=== PATIENT | female | born 1940 | race Caucasian/White ===

== ENCOUNTER → 2019-02-21 | Outpatient (CLI) | payer MEDICARE, MEDICAID ==
[~2019-02-21] MED LIST: ALLO100T PO; ATOR1TAB21 PO; CELE20TA PO; CIPR-249 PO; DOCU100C16 PO; FURO20TA2 PO; MIRA3350 PO; MOBI4TAB PO; NEUR100C PO; NOVOINJ3 SC; OXYC-517 PO; PRED20TA PO; SPIR-10 PO; TOPR50TA PO; TRES1INJ SC; [UNRECOGNIZED DRUG - CODE] PO
--- NOTE | 2019-02-21 17:29 | REP ---
PET/CT: History: Initial staging non-Hodgkin's lymphoma. Intra-abdominal node/mass. Comparisons: No comparison abdominal imaging is available. TECHNIQUE: 60 minutes following the intravenous injection of a 9.85 mCi dose of F-18 FDG, three-dimensional PET scintigraphy is acquired from the skull base to the proximal thighs. Triplanar noncontrast CT scanning is acquired through the same anatomic range for attenuation correction, and image registration with scan parameters optimized to minimize radiation exposure to the patient. PET scintigraphy and CT datasets were fused and displayed on a workstation with multiplanar and projection display capability. PET/CT Findings: There is fairly bulky small bowel mesenteric lymphadenopathy. The largest tatum component in the small bowel mesentery measures 7.6 cm in greatest diameter. On the anterior margin of this there is a small metallic clip. This tatum mass in the small bowel mesentery is hypermetabolic. Maximum standard uptake value is 14.46. There is no other abnormal hypermetabolic uptake in the abdomen or pelvis. No abnormal hypermetabolic uptake is seen in the thoracic cavity. Head and neck soft tissues are unremarkable. Impression: There is fairly bulky confluent adenopathy in the small bowel mesentery in the central abdomen which is hypermetabolic. No other abnormal hypermetabolic uptake is seen. Electronically Signed by Will Velazquez MD 02/21/2019 08:41 P
== END ==
LOC: MERGE 11:31 → M PLARAD 11:31
PROVIDERS: ATTEND Internal Medicine Medical Oncology
DX: R19.00 Intra-abdominal and pelvic swelling, mass and lump, unspecified site (principal); C85.12 Unspecified B-cell lymphoma, intrathoracic lymph nodes
CPT/HCPCS: 78815; A9552

== ENCOUNTER → 2019-03-22 | Outpatient (CLI) | payer MEDICARE, MEDICAID ==
[~2019-03-22] MED LIST changes: +BUPIVACAINE HCL 0.5% 10 ML VIAL As Ordered ONE; +LIDOCAINE 1% MDV 20ML VIAL As Ordered ONE; +LIDOCAINE 2% MDV 20 ML VIAL As Ordered ONE; +MIDAZOLAM INJ 2 MG/2 ML VIAL (J2250) As Ordered ONE; +OLAN10TA12 PO; +ONDA8TAB7 PO; +OXYC1TAB15 PO; +PROC10TA4 PO; +ceFAZolin 1GM INJ (J0690 PER 500MG) As Ordered ONE; +diphenhydrAMINE INJ 50MG/ML VIAL (J1200) As Ordered ONE; +fentaNYL 100 MCG/2 ML INJECTION (J3010) As Ordered ONE
--- NOTE | 2019-03-22 08:48 | IPNPDOC ---
Subjective Date Seen The patient was seen on 03/22/19. Subjective Chief Complaint/HPI lymphoma. needs port for chemo Objective Physical Examination Other physical findings Diagnosis: lymphoma. needs port for chemo ASA III Malampatti II DANITZA: yes problems with sedation before: no NPO; yes Heart normal rate breathing normally at rest plan port placement under moderate sedation. Assessment /Plan Plan/VTE VTE Prophylaxis Ordered?: No Plan port VS, I&O, 24H, Fishbone Vital Signs/I&O Vital Signs Date Time Temp Pulse Resp B/P (MAP) Pulse Ox O2 Delivery O2 Flow Rate FiO2 03/22/19 08:02 99.0 78 18 94 BRITNEY PEREYAR MD Mar 22, 2019 08:48
--- NOTE | 2019-03-22 10:46 | ROOPDOC ---
[facility] Report Of Operation Report of Operation DATE OF PROCEDURE: 03/22/19 PREPROCEDURE DIAGNOSES: lymphoma POSTPROCEDURE DIAGNOSES: lymphoma PROCEDURE: port SURGEON: joan ANESTHESIA: mod sed ESTIMATED BLOOD LOSS: Approximately [5] mL. COMPLICATIONS: [none]. REMARKS: right IJ port placed. tip RA. port ready for use BRITNEY PEREYRA MD Mar 22, 2019 10:46
[2019-03-22 11:48] VITALS: BP 132/74
--- NOTE | 2019-03-22 13:11 | REP ---
Ultrasound and fluoroscopic guided port placementUltrasound of the neckClinical Information: Lymphoma. Port for chemoPhysician[s]: Dr. Smallsrocedure: The patient was advised of the benefits, risks, and alternatives of the procedure and informed consent was obtained.A time out was performed with verification of the patient's name, MRN, site of procedure, and type of procedure to be performed. The patient was positioned in the supine position on the angiographic table. The site was prepped and draped in the usual sterile fashion.Moderate sedation was performed by the physician including the presence of an independent trained observer that assisted in monitoring the patient's level of consciousness and physiological status. Following the administration of Versed and Fentanyl, the physician spent 45 minutes of continuous [id number] time with the patient.Ultrasound of the neck reveals a patent and compressible right internal jugular vein.A lead systems architect radiograph reveals no significant abnormality. The neck and anterior chest wall were anesthetized with lidocaine. The right internal jugular vein was accessed using a microintroducer needle via lateral approach. A 0.018 cope wire was advanced into the superior vena cava, the needle was removed and a microintroducer sheath was placed. An Amplatz wire was then passed into the inferior vena cava. Incisions at the internal jugular access site and anterior chest wall were made using a scalpel. An incision was made over the anterior chest wall. A small pocket was created using a combination of blunt and sharp dissection. A tunneler was then used to pass the catheter from the pocket to the neck puncture site. An 8 Samoan Clearvue view Powerport was then positioned in the pocket. The catheter was then measured and cut. The microintroducer sheath was exchanged for a peel-away sheath. The catheter was passed through the peel-away sheath into the internal jugular vein, and the peel-away sheath was removed. The port was then accessed with a Friedman needle. The port flushes and aspirates easily. The puncture site in the neck was closed. The chest wall incision was then closed with 2-0 Vicryl sutures and 4-0 Monocryl. A sterile dressing was then applied.The patient tolerated the procedure well and was returned to the PRU in stable condition.EBL: lt; 5 mL.Complications: Complications.Conclusion:1. Successful placement of an 8 Samoan Clearvue Powerport power injectable port via the right internal jugular vein. The port is ready for immediate use. 2. Patient to follow up in IR clinic in 2 weeks Thank you for this referral Electronically Signed by Chely Samson MD 03/22/2019 01:09 P
== END ==
LOC: M IRPRO 07:51
PROVIDERS: ATTEND Radiology Diagnostic Radiology
DX: C83.30 Diffuse large B-cell lymphoma, unspecified site (principal); A49.8 Other bacterial infections of unspecified site; E10.9 Type 1 diabetes mellitus without complications; G47.33 Obstructive sleep apnea (adult) (pediatric)
CPT/HCPCS: 36563; 76937; C1769; C1788; C1894; J0690; J1200; J2250; J3010

== ENCOUNTER → 2019-04-03 | Outpatient (POV) | payer MEDICARE, MEDICAID ==
[~2019-04-03] VITALS: Ht 147.3 cm; Wt 111.4 kg
[~2019-04-03] MED LIST changes: -BUPIVACAINE HCL 0.5% 10 ML VIAL As Ordered ONE; -LIDOCAINE 1% MDV 20ML VIAL As Ordered ONE; -LIDOCAINE 2% MDV 20 ML VIAL As Ordered ONE; -MIDAZOLAM INJ 2 MG/2 ML VIAL (J2250) As Ordered ONE; -ceFAZolin 1GM INJ (J0690 PER 500MG) As Ordered ONE; -diphenhydrAMINE INJ 50MG/ML VIAL (J1200) As Ordered ONE; -fentaNYL 100 MCG/2 ML INJECTION (J3010) As Ordered ONE
[2019-04-03 09:15] VITALS: BP 130/63
--- NOTE | 2019-04-03 14:02 | IPNPDOC ---
Text Note Date of Service The patient was seen on 04/03/19. 2 weeks status post right IJ port placement. Patient doing well. No fevers or chills. Port working well. On examination: Patient appears comfortable at rest. Port site looks clean with appropriate healing. Dissolvable sutures in the process of absorbing. No pus, no redness or tenderness. Impression: Doing well 2 weeks status post port placement. Advised on on going care for that area until full healing has occurred. Thank you for this referral Malvin MONTOYA, I+O VSMalvin, I+O Vital Signs Date Time Temp Pulse Resp B/P (MAP) Pulse Ox O2 Delivery O2 Flow Rate FiO2 04/03/19 09:15 96.6 71 18 130/63 (85) 92 BRITNEY PEREYRA MD Apr 03, 2019 14:02
== END ==
LOC: M IRPOV 09:11
PROVIDERS: ATTEND Radiology Diagnostic Radiology
DX: Z48.812 Encounter for surgical aftercare following surgery on the circulatory system (principal)

== ENCOUNTER → 2019-04-17 | Outpatient (CLI) | payer MEDICARE, MEDICAID ==
[~2019-04-17] MED LIST changes: +GERI8.6T PO
--- NOTE | 2019-04-17 18:53 | REP ---
CT NECK WITHOUT CONTRAST: HISTORY: Neck lump. The naso-, nena-, and hypopharynx, larynx and subglottic trachea are normal in appearance. The salivary and thyroid glands are normal in size and density. Small lymph nodes less than 1 cm in size are present in the internal jugular chains, posterior triangles and submandibular areas. Atherosclerotic calcification is present at the carotid bifurcations. Degenerative change is present in the cervical spine. The lung apices are clear. Mucosal thickening is present in the left sphenoid sinus. A catheter is present in the right subclavian vein. IMPRESSION:There is no neck mass or adenopathy. Electronically Signed by Lux Bermudez MD 04/18/2019 08:18 A
== END ==
LOC: M RAD 15:47
PROVIDERS: ATTEND Internal Medicine
DX: R13.10 Dysphagia, unspecified (principal)

== ENCOUNTER → 2019-05-11 | Outpatient (CLI) | payer MEDICARE, MEDICAID ==
[~2019-05-11] MED LIST changes: +AMOX875T2 PO; +MELA5TAB11 PO
--- NOTE | 2019-05-11 16:18 | REP ---
Clinical: History of lymphoma for restaging. Technique: Axial noncontrast images from the thoracic inlet to the upper abdomen with coronal and sagittal re-formations. Comparison: 01/25/2019. Findings: Bilateral lung mccartney demonstrate chronic mild bronchiectasis, interstitial changes and chronic linear fibrosis/scarring involving the lower lung zones without acute consolidation or significant atelectasis. No pleural effusion. No pneumothorax. A 3 mm noncalcified nodule in the right upper lobe (image 26, 39) appear minimally decreased in size from prior examination. Calcified granuloma in the left lower lobe remains stable. No further nodule or mass lesion. No obvious significant adenopathy by noncontrast evaluation although a few scattered calcified hilar lymph nodes are identified and consistent with prior granulomatous disease. Atherosclerotic changes to the thoracic aorta and coronary arteries noted without aortic aneurysm. No cardiomegaly. No pericardial effusion. Musculoskeletal structures demonstrate age-related degenerative changes without focal osseous abnormality. Limited upper abdomen demonstrates normal bilateral adrenal glands and evidence for prior cholecystectomy. Impression: 1. Two small noncalcified nodules in the right upper lobe measuring up to 3 mm are decreased from prior examination. 2. No new acute mediastinal or pleuroparenchymal process appreciated. 3. Chronic stable changes. Electronically Signed by Madhu Harper MD 05/11/2019 04:11 P
--- NOTE | 2019-05-11 16:23 | REP ---
Clinical: Lymphoma for restaging. Technique: Axial noncontrast images from the lung bases to the pubic symphysis with coronal and sagittal re-formations. Comparison: 01/23/2019. Findings: Bulky soft tissue mass lesions in the central mesentery consistent with adenopathy are again identified but decreased from prior examination. Specifically, the largest lesion measures 5.6 x 3.5 x 3.9 cm and previously measured 7.8 x 6.0 x 5.0 cm. No new mass lesions or further adenopathy is appreciated. No retroperitoneal or pelvic adenopathy noted. No ascites. Liver, spleen/splenules, pancreas, bilateral adrenal glands and atrophic appearing kidneys remain essentially stable and within normal limits. Evidence of prior cholecystectomy again noted. The enteric system is without obstruction or acute inflammatory process. Scattered colonic diverticula noted without acute diverticulitis. Pelvis demonstrates normal bladder and age-appropriate uterus/adnexa. Musculoskeletal structures demonstrate degenerative changes without focal abnormality noted. Impression: 1. Bulky mass lesions in the central mesentery consistent with adenopathy appeared slightly decreased in size compared to prior examination. No new adenopathy or mass lesions noted. 2. Diverticulosis without acute diverticulitis. Electronically Signed by Madhu Harper MD 05/11/2019 04:15 P
== END ==
LOC: M RAD 13:09
PROVIDERS: ATTEND Internal Medicine Medical Oncology
DX: C83.30 Diffuse large B-cell lymphoma, unspecified site (principal); R91.8 Other nonspecific abnormal finding of lung field; K57.90 Diverticulosis of intestine, part unspecified, without perforation or abscess without bleeding

== ENCOUNTER → 2019-08-14 | Outpatient (CLI) | payer MEDICARE, MEDICAID ==
[~2019-08-14] MED LIST changes: +GASTROGRAFIN SOLUTION 30ML (Q9963) As Ordered ONE; +ISOVUE-370 76% 100ML VIAL (Q9967) As Ordered ONE; +LIDO2.5C15 TOP
--- NOTE | 2019-08-14 11:48 | REP ---
Clinical: Diffuse large B-cell lymphoma. Technique: Axial contrast enhanced images from the lung bases to the pubic symphysis with oral (per protocol) and 100 ml Isovue 370 intravenous contrast material. Delayed images of the abdomen and. Comparison: 04/24/2019. Findings: Central mesenteric mass/adenopathy has decreased in size with the largest lesion now measuring 4.5 x 2.7 cm (previously measuring 5.6 x 3.5 cm) and the adjacent smaller lymph nodes are also decreased in size. No further intra-abdominal adenopathy. No retroperitoneal or inguinal adenopathy noted. Liver, spleen, pancreas, bilateral adrenal glands and symmetric atrophic kidneys appear relatively normal / stable. Evidence for prior cholecystectomy. The enteric system is without obstruction or acute inflammatory process. Few sigmoid diverticula noted without acute diverticulitis. Pelvis demonstrates collapsed bladder and stable uterus/adnexa. No ascites. No free air. Lung bases demonstrate chronic bronchiectasis, minimal scarring, and calcified granuloma. Visualized heart and pericardium normal. Impression: 1. Central mesenteric adenopathy has decreased when compared to prior examination. No new lesions are appreciated. No ascites. Electronically Signed by Madhu Harper MD 08/14/2019 11:39 A
--- NOTE | 2019-08-14 11:51 | REP ---
Clinical: Diffuse large B-cell lymphoma. Technique: Axial contrast enhanced images from the thoracic inlet to the upper abdomen with coronal and sagittal re-formations using 100 ml Isovue 370 intravenous contrast material. Comparison: 05/11/2019. Findings: The bilateral lung mccartney demonstrate chronic lingular and bibasilar scarring along with mild chronic bronchiectasis and 9 mm calcified granuloma in the left lower lobe. 3 mm noncalcified nodules in the right upper lobe (image 22, 35) are stable compared to 05/11/2019 and 01/25/2019 examinations. PET-CT on 02/21/2019 demonstrate no hypermetabolic activity. No consolidation. No effusion. No pneumothorax. No axillary, hilar, or mediastinal adenopathy. Atherosclerotic changes to the thoracic aorta and coronary arteries again noted without aortic aneurysm or cardiomegaly. No pericardial effusion. Osseous structures are intact. [id number] identified with tip in the right atrium. Impression: 1. No acute mediastinal or pleuroparenchymal process appreciated. 2. Chronic stable changes as noted above. Electronically Signed by Madhu Harper MD 08/14/2019 11:44 A
--- NOTE | 2019-08-14 12:17 | REP ---
CT neck: 08/14/2019. Indication: Diffuse large B-cell lymphoma. Comparison: 04/17/2019. Technique: Axial images of the neck soft tissues were obtained following the administration of 100 ml IV Isovue 370. Sagittal and coronal reconstructions provided. Findings: No abnormal solid soft tissue masses, abnormal fluid collections or lymphadenopathy are present within the neck soft tissues. Note is made of a retropharyngeal course of the carotid arteries bilaterally. The submandibular, parotid and thyroid glands are unremarkable. The airway is patent. No significant ocular, intraorbital or intracranial abnormalities are detected. Paranasal sinus mucosal disease is present within the left sphenoid sinus including inspissated mucous. Impression: No cervical lymphadenopathy. Left sphenoid sinus disease. Electronically Signed by Neville Dawson DO 08/14/2019 12:08 P
== END ==
LOC: M RAD 09:08
PROVIDERS: ATTEND Internal Medicine Medical Oncology
DX: C83.30 Diffuse large B-cell lymphoma, unspecified site (principal); J32.3 Chronic sphenoidal sinusitis
CPT/HCPCS: 70491; 71260; 74177; Q9963; Q9967

== ENCOUNTER → 2019-11-27 | Outpatient (CLI) | payer MEDICARE, MEDICAID ==
[~2019-11-27] MED LIST changes: +LEVO500T3 PO; +ONDA8TAB10 PO; -ONDA8TAB7 PO
--- NOTE | 2019-11-27 15:56 | REP ---
REASON FOR EXAM: History of large B cell lymphoma. COMPARISON: Multiple, the latest 08/14/2019. CONTRAST: 100 mL Isovue 370. The mediastinum and pulmonary viv are unchanged. No mass or adenopathy has developed. There are no pleural or pericardial effusions. The imaged osseous structures are stable and intact. Evaluation of the lung mccartney shows two nodules in the right upper lobe, one anteriorly and seen on the prior exam measuring 4 mm today measuring 5 mm, the other, inferomedial to that on the prior exam measuring 4 mm and today measuring 5 mm. There are a few scattered incidental calcified granulomas status quo. IMPRESSION: Two nodules in the right lung upper lobe as described above. Although they seemingly have only increased 1 mm in size each that 1 mm increment may represent a significant increase in size since the prior exam was 3 months ago. This finding should be correlated clinically with appropriate followup. Other findings as described above. Electronically Signed by Roge Ba DO 11/27/2019 04:34 P
--- NOTE | 2019-11-27 16:00 | REP ---
REASON: Followup lymphoma. COMPARISON: Multiple, the latest 08/14/2019. CONTRAST: 100 mL Isovue 370. Surgical clips are again seen in the gallbladder fossa from previous cholecystectomy. The liver, spleen, pancreas, adrenal glands, and kidneys are unchanged. Note is again made of bilateral renal cortical thinning status quo. The abdominal aorta and paraaortic regions are unchanged. No adenopathy has developed. No free fluid or free air is present. In the small bowel mesentery centrally note is again made of a mass the size of which has remained stable measuring approximately 4.6 x 2.8 cm. Two smaller nodules are again seen adjacent to this mass and those two are unchanged. CT PELVIS: The bowel loops and their mesenteries are within normal limits. There is no evidence of a pelvic mass or adenopathy. There is no free fluid or free air. Bone window technique throughout the exam shows no significant change in the appearance of the osseous structures. IMPRESSION: Stable CT examination of the abdomen and pelvis as described above. Electronically Signed by Roge Ba DO 11/27/2019 04:34 P
== END ==
LOC: M RAD 12:47
PROVIDERS: ATTEND Internal Medicine Medical Oncology
DX: C83.32 Diffuse large B-cell lymphoma, intrathoracic lymph nodes (principal); R91.8 Other nonspecific abnormal finding of lung field
CPT/HCPCS: 71260; 74177; J1642; Q9963; Q9967

== ENCOUNTER → 2020-12-29 | Outpatient (CLI) | payer MEDICARE, MEDICAID ==
[~2020-12-29] MED LIST changes: +CITA40TA4 PO; +FURO40TA2 PO; -ISOVUE-370 76% 100ML VIAL (Q9967) As Ordered ONE; +ISOVUE-370 76% 100ML VIAL As Ordered ONE; +[UNRECOGNIZED DRUG - CODE] PO; -[UNRECOGNIZED DRUG - CODE] PO
--- NOTE | 2020-12-29 15:20 | REP ---
INDICATION: LYMPHOMA. COMPARISON: CT neck with contrast 08/14/2019. TECHNIQUE: Axial CT images with multiplanar reformations. FINDINGS: Oropharynx, nasopharynx, hypopharynx and larynx appear unremarkable. No significant lymphadenopathy identified. There is [id number] multilevel degenerative disease of the cervical spine without evidence of a high-grade canal stenosis. Atherosclerotic changes are seen at the right carotid bifurcation without definite evidence of a high-grade canal stenosis. Similarly on the left atherosclerotic calcification seen at the carotid bifurcation without evidence of a high-grade stenosis. IVC filter seen in position. Internal carotid arteries have a retropharyngeal deviation. As noted previously, the left sphenoid sinus appears chronically opacified. IMPRESSION: No lymphadenopathy seen. Chronic left sphenoid sinus disease. <Electronically signed by Jon Vanessa > 12/29/20 [id number]
--- NOTE | 2020-12-29 15:37 | REP ---
INDICATION: LYMPHOMA COMPARISON: 11/27/2019 TECHNIQUE: Axial contrast enhanced images from the thoracic inlet to the upper abdomen using 100 ml Isovue 370 intravenous contrast material with coronal and sagittal reformations followed by CT of the abdomen and pelvis.. This CT examination was performed using the following dose reduction techniques: Automated exposure control, adjustment of mA and/or kv according to the patient's size, and use of iterative reconstruction technique. FINDINGS: Relatively mild mediastinal and bilateral hilar adenopathy is appreciated including few lymph nodes measuring up to approximately 16 mm diameter which is increased as compared with prior examination. Few bilateral noncalcified pulmonary nodules are also appreciated which may be slightly increased from prior examination. As example, a new nodules identified in the left perihilar region measuring 9 mm (series 304; image 53). Lung mccartney also demonstrate chronic interstitial changes, chronic mild bronchiectasis and calcified granuloma. No acute consolidation, effusion, or pneumothorax. Further evaluation of the mediastinum demonstrates stable atherosclerotic changes to the thoracic aorta and coronary arteries without aortic aneurysm, dissection, or cardiomegaly. No pericardial effusion. Surrounding musculoskeletal structures are intact. [id number] identified with tip in the right atrium. IMPRESSION: 1. Mild, but increased mediastinal and bilateral hilar adenopathy with lymph nodes measuring up to approximately 16 mm. 2. Few noncalcified nodules throughout the bilateral lung mccartney similar to prior examination although new nodule in the left perihilar region and minimally increased size to few nodules suggested. <Electronically signed by Madhu Harper > 12/29/20 [id number]
--- NOTE | 2020-12-29 15:42 | REP ---
INDICATION: LYMPHOMA. COMPARISON: 11/27/2019 TECHNIQUE: Axial contrast-enhanced images from the lung bases to the pubic symphysis using oral and 100 cc Isovue 370 intravenous contrast material. Coronal and sagittal reformations obtained along with delayed images of the abdomen. This CT examination was performed using the following dose reduction techniques: Automated exposure control, adjustment of mA and/or kv according to the patient's size, and the use of iterative reconstruction technique. FINDINGS: Liver, pancreas, and bilateral adrenal glands are normal. Spleen demonstrates parenchymal calcifications suggesting prior granulomatous disease and or post therapeutic changes. Evidence for prior cholecystectomy. Kidneys demonstrate symmetric age-related atrophic changes. The enteric system is without obstruction or acute inflammatory process. Colonic and sigmoid diverticula noted without acute diverticulitis. Pelvis demonstrates normal bladder and age-appropriate uterus/adnexa. No ascites. No free air. No intraperitoneal or retroperitoneal adenopathy. Abdominal aorta and vasculature appear normal. Musculoskeletal structures are intact and without acute osseous abnormality. IMPRESSION: No acute abdominopelvic pathology appreciated. No ascites, focal inflammatory stranding or adenopathy. Chronic nonacute findings. <Electronically signed by Madhu Harper > 12/29/20 [id number]
== END ==
LOC: M RAD 13:05
PROVIDERS: ATTEND Specialist
DX: C85.90 Non-Hodgkin lymphoma, unspecified, unspecified site (principal); J32.3 Chronic sphenoidal sinusitis; R91.8 Other nonspecific abnormal finding of lung field; K57.30 Diverticulosis of large intestine without perforation or abscess without bleeding
CPT/HCPCS: 70491; 71260; 74177; Q9963; Q9967

== ENCOUNTER → 2021-04-21 | Outpatient (REF) | payer MEDICARE, MEDICAID ==
[~2021-04-21] MED LIST changes: -GASTROGRAFIN SOLUTION 30ML (Q9963) As Ordered ONE; -ISOVUE-370 76% 100ML VIAL As Ordered ONE; +LIDO1CRE42 TOP; -LIDO2.5C15 TOP; -OXYC1TAB15 PO; +OXYC7.5T3 PO; +STIO1AER IN
== END ==
LOC: M LAB REF 17:04
PROVIDERS: ATTEND Internal Medicine Nephrology
DX: N39.0 Urinary tract infection, site not specified (principal)

== ENCOUNTER → 2021-08-17 | Outpatient (CLI) | payer MEDICARE, MEDICAID ==
[~2021-08-17] MED LIST changes: +LEVO250T12
--- NOTE | 2021-08-17 13:26 | REP ---
INDICATION: DLBCL. COMPARISON: None. TECHNIQUE: CT chest performed without the use of intravenous contrast. Sagittal and coronal reconstruction images are performed. FINDINGS: Lungs: A 3 mm ill-defined nodular density in the left upper lobe on image 36 has decreased since the prior study. A 3 mm nodular density in the right upper lobe on image 25 has decreased since the prior study. There is a 6 x 3 mm oval nodular density in the right upper lobe posteriorly on image 28 which is new. A 3 mm nodular density in the right upper lobe on image 30 has decreased in size. A 5 mm nodular density in the right upper lobe on image 38 has decreased in size, previously 7 mm. A 3 mm nodular density in the medial right posterior costophrenic sulcus has decreased since the prior exam. Diffuse fibrotic changes and bilateral lower lobe bronchiectasis are not significantly changed. Calcified granuloma is seen in the left lower lobe. Mediastinum: Multiple mildly enlarged mediastinal lymph nodes have mildly increased in size. The largest is in the precarinal region measuring 2.0 x 1.5 cm. Krupa: Multiple bilateral hilar lymph nodes have mildly increased in size. Precise measurements cannot be obtained due to the lack of IV contrast. Axilla: No gross adenopathy. Pleura: No effusion. Heart: There is mild cardiomegaly. Thoracic aorta: No aneurysm. Upper abdominal structures: There has been a prior cholecystectomy. Visualized osseous structures: There are degenerative changes of the spine without compression deformity. Right central venous catheter is seen with the tip in the right atrium. IMPRESSION: Previously noted parenchymal nodular densities have mildly decreased in size overall, there is 1 new oval nodular density in the right upper lobe measuring 6 x 3 mm. Multiple mildly enlarged mediastinal and hilar lymph nodes have mildly increased in size since the prior exam as discussed in detail above. <Electronically signed by Star Villanueva > 08/17/21 [id number]
--- NOTE | 2021-08-17 13:38 | REPVR ---
PROCEDURE INFORMATION: Exam: CT Neck Without Contrast Exam date and time: 08/17/2021 12:56 PM Age: 80 years old Clinical indication: Condition or disease; Other: Dlbcl TECHNIQUE: Imaging protocol: Computed tomography images of the neck without contrast. Radiation optimization: All CT scans at this facility use at least one of these dose optimization techniques: automated exposure control; mA and/or kV adjustment per patient size (includes targeted exams where dose is matched to clinical indication); or iterative reconstruction. COMPARISON: PT PET/CT SKULL BASE TO MID THIGH - OUTSIDE PRIOR 03/10/2021 9:40 AM FINDINGS: Paranasal sinuses: There is moderate left sphenoid sinus mucosal thickening with dense material, suggestive of inspissation. Nasopharynx: Unremarkable. Oropharynx: Unremarkable. No significant tonsillar enlargement. Hypopharynx: Unremarkable. Larynx: Unremarkable. Normal epiglottis. Retropharyngeal space: Unremarkable. Submandibular/Parotid glands: Normal. Glands are normal in size. Thyroid: Normal. No enlarged or calcified nodules. Lymph nodes: There is prevascular and paratracheal lymphadenopathy. Trachea: Visualized trachea is unremarkable. Lungs: Unremarkable as visualized. Bones/joints: There is multilevel degenerative disc disease and spondylosis. No acute fracture. Soft tissues: Unremarkable. No significant soft tissue swelling. IMPRESSION: Mediastinal lymphadenopathy, incompletely imaged. Electronically signed by: Marielle Walter On 08/17/2021 13:38:20 PM
== END ==
LOC: M RAD 12:46
PROVIDERS: ATTEND Specialist
DX: C83.30 Diffuse large B-cell lymphoma, unspecified site (principal); R91.8 Other nonspecific abnormal finding of lung field; R59.9 Enlarged lymph nodes, unspecified

== ENCOUNTER → 2021-11-18 | Outpatient (CLI) | payer MEDICARE, MEDICAID ==
[~2021-11-18] MED LIST changes: -CITA40TA4 PO; +CITA40TA7 PO; -LEVO250T12; +LEVO250T3; -LEVO500T3 PO; +LEVO500T4 PO; +ONDA-84 PO; -ONDA8TAB10 PO; +PRESCAP PO; -PROC10TA4 PO; +PROC10TA5 PO
== END ==
LOC: M RAD 09:46
PROVIDERS: ATTEND Specialist
DX: C83.30 Diffuse large B-cell lymphoma, unspecified site (principal); I25.10 Atherosclerotic heart disease of native coronary artery without angina pectoris; K57.90 Diverticulosis of intestine, part unspecified, without perforation or abscess without bleeding; R91.8 Other nonspecific abnormal finding of lung field

== ENCOUNTER → 2022-07-12 | Outpatient (CLI) | payer MEDICARE, MEDICAID ==
[~2022-07-12] MED LIST changes: +Aspirin PO; +BRIL90TA; +LEVO1TAB38; +LEVO1TAB39 PO; -LEVO250T3; -LEVO500T4 PO
== END ==
LOC: M RAD 09:16
PROVIDERS: ATTEND Nurse Practitioner
DX: C85.90 Non-Hodgkin lymphoma, unspecified, unspecified site (principal); Z90.49 Acquired absence of other specified parts of digestive tract; I70.0 Atherosclerosis of aorta; N26.1 Atrophy of kidney (terminal); K57.30 Diverticulosis of large intestine without perforation or abscess without bleeding; M51.36 Other intervertebral disc degeneration, lumbar region; R91.1 Solitary pulmonary nodule; J84.10 Pulmonary fibrosis, unspecified; J47.9 Bronchiectasis, uncomplicated; I25.10 Atherosclerotic heart disease of native coronary artery without angina pectoris; M47.814 Spondylosis without myelopathy or radiculopathy, thoracic region; I51.7 Cardiomegaly; E04.1 Nontoxic single thyroid nodule

== ENCOUNTER → 2022-11-12 | Outpatient (CLI) | payer MEDICARE, MEDICAID | LOC: M RAD 08:01 | PROVIDERS: ATTEND Specialist | DX: C83.30 Diffuse large B-cell lymphoma, unspecified site (principal); Z90.49 Acquired absence of other specified parts of digestive tract; Z95.828 Presence of other vascular implants and grafts; I70.0 Atherosclerosis of aorta; R91.8 Other nonspecific abnormal finding of lung field; J84.10 Pulmonary fibrosis, unspecified; J32.3 Chronic sphenoidal sinusitis ==

== ENCOUNTER → 2022-12-21 | Outpatient (REF) | payer MEDICARE, MEDICAID ==
[2022-12-21 18:11] LABS: THYROID STIMULATING HORMONE 4.815 uIU/ML (0.55-4.78)
[2022-12-21 18:12] LABS: FREE T4 0.92 NG/DL (0.89-1.76)
== END ==
LOC: M LAB REF 17:08
PROVIDERS: ATTEND Internal Medicine Nephrology
DX: E03.9 Hypothyroidism, unspecified (principal)

== ENCOUNTER → 2023-05-18 | Outpatient (CLI) | payer MEDICARE, MEDICAID ==
[~2023-05-18] MED LIST changes: +GASTROGRAFIN SOLUTION 30ML As Ordered ONE; -LIDO1CRE42 TOP; +LIDO30CR18 TOP
== END ==
LOC: M RAD 12:02
PROVIDERS: ATTEND Specialist
DX: C83.30 Diffuse large B-cell lymphoma, unspecified site (principal); J47.9 Bronchiectasis, uncomplicated
CPT/HCPCS: 70490; 71250; 74176; Q9963

== ENCOUNTER → 2024-08-03 | Outpatient (CLI) | payer MEDICARE, MEDICAID ==
[~2024-08-03] MED LIST changes: +ALBU8.5H; +ATOR40TA75; +CALC1CAP31; +CLOP75TA2; -GASTROGRAFIN SOLUTION 30ML As Ordered ONE; +GASTROGRAFIN SOLUTION 30ML ONE; -GERI8.6T PO; +LASI40TA9 PO; +SENN-193 PO
== END ==
LOC: M PLAIMG 08:33
PROVIDERS: ATTEND Specialist
DX: C83.30 Diffuse large B-cell lymphoma, unspecified site (principal); Z90.49 Acquired absence of other specified parts of digestive tract; D73.89 Other diseases of spleen
CPT/HCPCS: 71250; 74176; Q9963

== ENCOUNTER → 2025-01-08 | Outpatient (CLI) | payer MEDICARE, MEDICAID ==
[~2025-01-08] MED LIST changes: -GASTROGRAFIN SOLUTION 30ML ONE
[2025-01-08 09:50] VITALS: TEMP 96.9
[2025-01-08] MEDS: NS (Normal Saline) 0.9% 1,000 ML IV SCH (10:04)
[2025-01-08] MEDS: ceFAZolin SODIUM 2 GM in DEXTROSE 5% (D5W) ADV/MINI-BAG 50 ML IV ONE (10:04)
[2025-01-08] MEDS: fentaNYL 100 MCG/2 ML INJECTION IV PRN (10:29)
[2025-01-08] MEDS: MIDAZOLAM INJ 2MG/2ML VIAL IV PRN (10:29)
[2025-01-08] MEDS: LIDOCAINE 1% MDV 20ML VIAL SC SCH (10:38)
[2025-01-08 11:15] VITALS: BP 156/68; O2SAT 96
== END ==
LOC: M IRPRO 09:41
PROVIDERS: ATTEND Specialist
DX: C85.10 Unspecified B-cell lymphoma, unspecified site (principal)
CPT/HCPCS: 36590; 99152; J0690; J2250; J3010